=== PATIENT | female | born 1955 | race Caucasian/White ===

== ENCOUNTER 2018-02-15 05:23 | Inpatient (IN) | payer OTHER ==
[~2018-02-15] VITALS: Ht 167.6 cm; Wt 74.8 kg
[2018-02-15] MEDS ORDERED: ACETAMINOPHEN 325 MG TABLET ONE (05:42)
[2018-02-15] MEDS ORDERED: CELECOXIB 100 MG CAPSULE ONE (05:42)
[2018-02-15] MEDS ORDERED: oxyCODONE HCL SR 10MG TAB.SR.12H PO ONE (05:42)
[2018-02-15] MEDS ORDERED: CEFAZOLIN SODIUM/DEXTROSE,ISO 50 ML IV ONE (05:42)
[2018-02-15] MEDS ORDERED: BACITRACIN 50000 UNITS/VIAL ONE (06:23)
[2018-02-15] MEDS ORDERED: KETOROLAC TROMETHAMINE INJ 30 MG/ML VIAL ONE (06:23)
[2018-02-15] MEDS ORDERED: ANESTHESIA TRAY IN PYXIS 1 EA TRAY MC ONE (06:23)
[2018-02-15] MEDS ORDERED: BUPIVACAINE 0.25% 75 MG/30 ML VIAL ONE (06:23)
[2018-02-15] MEDS ORDERED: FENTANYL PF 250MCG/5ML AMPUL ONE (06:52)
[2018-02-15] MEDS ORDERED: MIDAZOLAM HCL 2 MG/2ML VIAL ONE (06:53)
[2018-02-15] MEDS ORDERED: SUCCINYLCHOLINE CHLORIDE 20 MG/ML VIAL ONE (06:53)
[2018-02-15] MEDS ORDERED: TRANEXAMIC ACID 3,000 MG in SODIUM CHLORIDE IRRIG SOLUTION 70 ML IR ONE (07:00)
[2018-02-15] MEDS ORDERED: FENTANYL PF 100MCG/2ML AMPUL ONE ×2 (08:32→08:53)
[2018-02-15] MEDS ORDERED: ONDANSETRON HCL/PF 4 MG/2 ML VIAL ONE (08:53)
[2018-02-15] MEDS ORDERED: DESFLURANE 240 ML BOTTLE IH ONE (09:17)
[2018-02-15] MEDS ORDERED: SEVOFLURANE 250 ML BOTTLE IH ONE (09:17)
[2018-02-15 09:40] VITALS: BP 114/62
--- NOTE | 2018-02-15 09:40 | NUR ---
CAT SCAN TECHNOLOGIST NOTE RECEIVED PT FROM OR. BEGINNING ADMISSION NOW. PT 9/ PAIN. SAFETY MEASURES IN PLACE. POST VS TAKEN. PT A/O X4. ON TELE SB 51. WILL CONTINUE TO MONITOR PATIENT.
[2018-02-15] MEDS ORDERED: DEXL60CA3 PO (10:26)
[2018-02-15] MEDS ORDERED: THYR30TA2 PO (10:26)
[2018-02-15] MEDS ORDERED: IV LR 1000 ML 1,000 ML IV PRN (10:30)
[2018-02-15] MEDS ORDERED: HYDROCODONE/APAP 5/325MG 1 EACH TABLET PO PRN ×2 (10:30)
[2018-02-15] MEDS ORDERED: SENNOSIDES 8.6 MG TABLET PO PRN (10:30)
[2018-02-15] MEDS ORDERED: BISACODYL SUPP (10 MG) 10 MG/SUPP.RECT SUPP.RECT RC PRN (10:30)
[2018-02-15] MEDS ORDERED: ZOLPIDEM TARTRATE 5 MG TABLET PO PRN (10:30)
[2018-02-15] MEDS ORDERED: DOCUSATE SODIUM 250 MG CAPSULE PO PRN (10:30)
[2018-02-15] MEDS ORDERED: ONDANSETRON HCL/PF 4 MG/2 ML VIAL IVP PRN (10:30)
[2018-02-15] MEDS ORDERED: ENOXAPARIN SODIUM 40 MG/0.4 ML DISP.SYRIN SQ SCH (11:00)
[2018-02-15] MEDS ORDERED: oxyCODONE/APAP (5/325 MG) 1 UDTAB TABLET PO PRN ×2 (11:00)
--- NOTE | 2018-02-15 11:31 | NUR ---
PREDATORY GAME HUNTER NOTE DR. CORNEJO AT BEDSIDE ORDERED TO GIVEN NORCO . PATIENT IN 08/02 PAIN PREVIOUS NORCO DID NOT WORK.
[2018-02-15] MEDS: PANTOPRAZOLE 40 MG TABLET.DR PO SCH (11:39)
[2018-02-15 12:00] VITALS: BP 100/62
--- NOTE | 2018-02-15 14:39 | NUR ---
BELT DRESSER NOTE CALLED MARIA DE JESUS N.P. ORDERED 500 BOLUS OF NS B/P 101/56. PT C/O PAIN 08/02. OK TO GIVEN FENTANYL PER MARIA DE JESUS.
[2018-02-15] MEDS ORDERED: IV NS 0.9% 500 ML BAG IV ONE (15:00)
[2018-02-15] MEDS: FENTANYL PF 100MCG/2ML AMPUL IV PRN (15:22)
[2018-02-15 16:00] VITALS: BP 94/64
[2018-02-15] MEDS ORDERED: MAG HYDROX/AL HYDROX/SIMETH 30 ML UDC PO PRN (16:30)
[2018-02-15] MEDS ORDERED: diphenhydrAMINE HCL ELIX 25 MG/10 ML UDC PO PRN (16:30)
[2018-02-15] MEDS: DOCUSATE SODIUM 100 MG CAPSULE PO SCH (16:58)
[2018-02-15] MEDS: ANCEF 1 GM/50 ML D5W IV SCH ×4 (16:58→22:54)
[2018-02-15] MEDS: oxyCODONE IR immediate release 5 MG PO PRN ×2 (16:59→20:16)
[2018-02-15] MEDS ORDERED: LORAZEPAM 0.5 MG TABLET PO PRN (17:30)
--- NOTE | 2018-02-15 19:30 | NUR ---
RESIDENTIAL SUPPORT SPECIALIST NOTES: RECEIVED PT. IN BED W/ HOB ELEVATED. A/O X 4. RA SAT. 98 %. ON TELE MONITOR W/ SINUS LINO @ 56. W/ IVF OF LR @ 125 ML/HR GOING VIA RAC G 22 PATENT AND INTACT W/ NO S/S OF INFECTION/INFECTION NOTED. CONTINENT OF B/B. USES BSC. W/ DRESSING INTACT ON RIGHT HIP. CALL LIGHT W/ REACH. ALL NEEDS MEET. WILL CONTINUE TO MONITOR.
[2018-02-15 20:00] VITALS: BP 96/63
--- NOTE | 2018-02-15 22:36 | NUR ---
ART GLASS DESIGNER NOTES: S/P RIGHT TOTAL HIP ARTHROPLASTY W/ ABDUCTION PILLOW.
[2018-02-15] MEDS: IV LR 1000 ML 1,000 ML IV PRN (22:59)
[2018-02-16] VITALS (7 sets, daily range): BP systolic 90–116; BP diastolic 58–67
[2018-02-16] MEDS: oxyCODONE IR immediate release 5 MG PO PRN ×3 (04:21→21:51)
[2018-02-16 06:33] LABS: CALCIUM, SERUM 7.7 mg/dL (8.5-10.1); CREATININE 0.6 mg/dL (0.6-1.3)
[2018-02-16 06:59] LABS: BASOPHILS % (AUTO) 0.4 % (0.0-2.0); EOSINOPHILS % (AUTO) 0.7 % (0.0-6.0); HEMATOCRIT 30 % (33-45); HEMOGLOBIN 10.7 g/dL (11.5-14.8); LYMPHOCYTES # (AUTO) 1.5 /CMM (0.8-4.8); LYMPHOCYTES % (AUTO) 18.4 % (20.0-44.0); MEAN CORPUSCULAR HGB CONC 35 g/dl (31.0-36.0); MEAN CORPUSCULAR VOLUME 89 fL (82-100); MONOCYTES # (AUTO) 0.8 /CMM (0.1-1.30); MONOCYTES % (AUTO) 10.4 % (2.0-12.0); NEUTROPHILS # (AUTO) 5.8 /CMM (1.8-8.9); NEUTROPHILS % (AUTO) 70.1 % (43.0-81.0); PLATELET COUNT (AUTO) 220 /CMM (150-450); RDW COEFFICIENT OF VARIATION 13.6 (11.5-15.0); RED BLOOD CELL COUNT(AUTO) 3.43 MIL/uL (4.0-5.2); WHITE BLOOD COUNT (AUTO) 8.2 K/uL (4.3-11.0)
--- NOTE | 2018-02-16 07:12 | NUR ---
TIMBER SIZER OPERATOR NOTES: NO ACUTE CHANGES NOTED DURING THIS SHIFT. REPORT GIVEN TO AM NURSE FOR SEAN.
[2018-02-16] MEDS: ACETAMINOPHEN 325 MG TABLET PO PRN ×2 (07:20→19:42)
--- NOTE | 2018-02-16 07:42 | NUR ---
TELE/RN NOTES RECEIVED PATIENT RESTING IN BED, ALERT AND ORIENTED X4, VERBALLY RESPONSIVE, IN NO FORM OF DISTRESS. NO RESPIRATORY DISTRESS OR DISCOMFORT. PATIENT COMPLAINTS OF 6/10 RIGHT HIP PAIN, OXY 10MG GIVEN BY STORAGE MANAGEMENT ARCHITECT NURSE. IV TO RIGHT AC INFUSING FLUIDS LR AT 125CC/HR. PER TELE READING SB IN 50S. PTS TEMP 100.3 TYLENOL 650MG GIVEN ORALLY ONCE FOR TEMP AND COOLING MEASURES APPLIED. SAFETY MEASURES RENDERED CALL LIGHT PLACED WITHIN REACH, WILL CONTINUE TO MONITOR.
[2018-02-16] MEDS: PANTOPRAZOLE 40 MG TABLET.DR PO SCH (08:34)
[2018-02-16] MEDS: DOCUSATE SODIUM 100 MG CAPSULE PO SCH ×2 (08:34→18:26)
[2018-02-16] MEDS ORDERED: RIVAROXABAN 10 MG TABLET PO SCH (09:00)
--- NOTE | 2018-02-16 09:20 | NUR ---
TELE/RN NOTES RE-ASSESSED PATIENT'S TEMP, 98.8 FEBRILE, IN STABLE CONDITION. WILL CONTINUE TO MONITOR
[2018-02-16] MEDS: FENTANYL PF 100MCG/2ML AMPUL IV PRN ×2 (11:03→18:30)
--- NOTE | 2018-02-16 11:44 | NUR ---
MS/RN NOTES PATIENT OOB WITH PHYSICAL THERAPY, PER DR. WESTFALL'S ORDER TO GIVE FENTANYL 25MCG INJ PRIOR TO PHYSICAL THERAPY WHICH WAS GIVEN AT 1103. PATIENT TOLERATING THERAPY WELL PER PT.
--- NOTE | 2018-02-16 19:02 | NUR ---
MS/RN CLOSING NOTES PATIENT RESTING IN BED COMFORTABLY, IN NO FORM OF DISTRESS OR DISCOMFORT, NO SIGNIFICANT CHANGES. PAIN MANAGEMENT ALTERNATING FENTANYL IV INJ WITH OXY. PATIENT ABLE TO USE BSC INDEPENDENTLY, DVT PROPHYLAXIS, RIGHT HIP SURGICAL DRESSING INTACT TO BE CHANGED TOMORROW. PATIENT BLOOD WORK AND VITAL SIGNS WNL. PT TOLERATED WELL. IV TO RIGHT AC INFUSED, ON AND OFF PER PREFERENCE. WILL ENDORSE CARE TO ASSESSMENT EXPERT FOR SEAN.
--- NOTE | 2018-02-16 19:20 | NUR ---
MS/RN NOTES RE- CHECKED PATIENT'S TEMP CURRENT TEMP 98.5. PATIENT FEBRILE, ASYMPTOMATIC. RADIO TALK SHOW HOST NURSE MADE AWARE, TYLENOL RETURNED BACK TO PYXIS.
--- NOTE | 2018-02-16 19:30 | NUR ---
MS/NURSE NOTES: RECEIVED PT. IN BED A/O X 4. ABLE TO MAKE NEEDS KNOWN. RA SAT. 96%. IV ON RAC G 22 PATENT AND INTACT W/ NO S/S OF INFECTION/INFILTRATION NOTED. W/ LR @ 125 CC/HR. PT. IS CONTINENT OF B/B. USES BSC. HAD DVT PROPHYLAXIS. HAS RIGHT HIP SURGICAL DRESSING INTACT. DENIES ANY C/O PAIN OR SOB AT THIS PRESENT. CALL LIGHT W/ REACH. WILL CONTINUE TO MONITOR.
--- NOTE | 2018-02-16 19:42 | NUR ---
MS/RN NOTES TEMP 99.6 ADMINISTERED 650MG TYLENOL PRN FOR TEMP.
[2018-02-17 04:00] VITALS: BP 111/71
[2018-02-17] MEDS: oxyCODONE IR immediate release 5 MG PO PRN ×3 (04:45→11:55)
[2018-02-17] MEDS: IV LR 1000 ML 1,000 ML IV PRN (04:45)
[2018-02-17] MEDS ORDERED: MAGNESIUM CITRATE 296 ML BOTTLE PO ONE (06:30)
--- NOTE | 2018-02-17 06:59 | NUR ---
MS/RN NOTES: NO ACUTE CHANGES NOTED DURING THIS SHIFT. REPORT GIVEN TO AM NURSE FOR SEAN.
[2018-02-17 07:06] LABS: BASOPHILS # (AUTO) 0.1 /CMM (0.0-0.2); BASOPHILS % (AUTO) 0.5 % (0.0-2.0); EOSINOPHILS % (AUTO) 1.6 % (0.0-6.0); HEMATOCRIT 32 % (33-45); HEMOGLOBIN 11.3 g/dL (11.5-14.8); LYMPHOCYTES % (AUTO) 18.6 % (20.0-44.0); MEAN CORPUSCULAR HGB CONC 36 g/dl (31.0-36.0); MEAN CORPUSCULAR VOLUME 89 fL (82-100); MONOCYTES # (AUTO) 1.1 /CMM (0.1-1.30); MONOCYTES % (AUTO) 9.9 % (2.0-12.0); NEUTROPHILS # (AUTO) 7.6 /CMM (1.8-8.9); NEUTROPHILS % (AUTO) 69.4 % (43.0-81.0); PLATELET COUNT (AUTO) 216 /CMM (150-450); RDW COEFFICIENT OF VARIATION 13.4 (11.5-15.0); RED BLOOD CELL COUNT(AUTO) 3.56 MIL/uL (4.0-5.2)
--- NOTE | 2018-02-17 07:31 | NUR ---
MS RN NOTES PATIENT RECEIVED RESTING INSIDE ROOM. SLEEPING, EASILY AROUSABLE THROUGH VERBAL AND TACTILE STIMULI. PATIENT BREATHING EVEN AND UNLABORED. NO SOB OR ACUTE DISTRESS NOTED. PATIENT DENIES ANY PAIN OR DISCOMFORT. PATIENT CALM AND RELAXED. NO CHANGES IN LOC NOTED AT THIS TIME. IV SITE ON RIGHT AC INTACT AND PATENT. NO BLEEDING OR SWELLING NOTED. WILL CONTINUE TO MONITOR. BED LOCKED AND IN LOW POSITION. BILATERAL UPPER SIDE RAILS UP AND LOCKED. CALL LIGHT WITHIN EASY REACH
[2018-02-17 08:00] VITALS: BP 129/72
[2018-02-17] MEDS: DOCUSATE SODIUM 100 MG CAPSULE PO SCH (08:26)
[2018-02-17] MEDS: PANTOPRAZOLE 40 MG TABLET.DR PO SCH (08:26)
--- NOTE | 2018-02-17 10:00 | NUR ---
MS RN NOTES PATIENT SEEN AND EXAMINED BY GABY LAGUNAS. RIGHT HIP DRESSING CHANGED. GAVE CLEARANCE FOR DISCHARGE HOME. PATIENT AWARE AND VERBALIZED UNDERSTANDING. WILL CONTINUE TO MONITOR
--- NOTE | 2018-02-17 10:10 | NUR ---
MS RN NOTES PATIENT SEEN AND EXAMINED BY MARIA DE JESUS FENG NP. WITH NEW ORDERS FOR PATIENT TO BE DISCHARGED HOME. ALSO WITH ORDER FOR COMMODE TO BE SENT WITH PATIENT HOME. ORDERS NOTED AND CARRIED OUT. PATIENT MADE AWARE AND VERBALIZED UNDERSTANDING. VERIFIED WITH CASE MANAGEMENT THAT PATIENT MAY HAVE COMMODE UPON DISCHARGED AND GAVE OK. PLACED CALL TO [facility] AND ORDERED COMMODE. WILL CONTINUE TO MONITOR
--- NOTE | 2018-02-17 13:46 | NUR ---
MS RN NOTES PATIENT FOR DISCHARGE HOME TODAY. DISCHARGE INSTRUCTIONS AND EDUCATION PROVIDED TO PATIENT. PATIENT LEFT UNIT AT 1340 IN STABLE CONDITION. NO CHANGES IN LOC NOTED. BREATHING EVEN AND UNLABORED. NO SOB OR ACUTE DISTRESS NOTED. DENIES ANY PAIN OR DISCOMFORT. PATIENT AFEBRILE, SKIN DRY AND WARM TO TOUCH. PATIENT VERBALIZED SHE HAD ALREADY SET-UP FOLLOW-UP APPOINTMENT WITH DR. FERRERA. ALL BELONGINGS COMPLETE UPON DISCHARGE, NO REPORT OF MISSING INVENTORY. ASSISTED OUTSIDE FOR TRANSFER. ACCOMPANIED WITH FRIEND FOR DISCHARGE. PATIENT LEFT HOSPITAL VIA PRIVATE CAR. ASSISTED WITH TRANSFER. NO EPISODE OF FALL OR INJURY DURING DISCHARGE. MD AWARE OF DISCHARGE
== END 2018-02-17 13:39 | disposition home or self-care (01) | DRG 470 ==
LOC: DS 05:23 → TELE-TD 09:21 → TELE1 09:26 → MEDSG1 02-16 10:58
PROVIDERS: ADMIT Specialist; ATTEND Specialist
PROC: 0SR90JZ Replacement of Right Hip Joint with Synthetic Substitute, Open Approach (ICD-10-PCS; principal; 2018-02-15 07:00)
DX: M16.11 Unilateral primary osteoarthritis, right hip (principal); E11.65 Type 2 diabetes mellitus with hyperglycemia; F41.9 Anxiety disorder, unspecified; K21.9 Gastro-esophageal reflux disease without esophagitis; M85.80 Other specified disorders of bone density and structure, unspecified site; Z87.891 Personal history of nicotine dependence; Z82.49 Family history of ischemic heart disease and other diseases of the circulatory system; Z80.3 Family history of malignant neoplasm of breast; Z98.890 Other specified postprocedural states; E89.0 Postprocedural hypothyroidism
CPT/HCPCS: 36415; 80048-TC; 85025-TC; 86850-TC; 86921-TC; 87081-TC; 88305-TC; 88311-TC; 97110-TC; 97116-TC; 97530-TC; A4217; A6209; A6402; J0330; J0690; J1885; J2250; J2405; J2704; J3010; J3490; J7060; J7120; Z7610